=== PATIENT | male | born 1965 | race Caucasian/White ===

== ENCOUNTER 2017-04-10 14:58 | Emergency (ER) | payer OTHER ==
[~2017-04-10] VITALS: Ht 177.8 cm; Wt 113.4 kg
[2017-04-10] MEDS ORDERED: PERCOCET 5-3251 EACH PO (15:26)
[2017-04-10] MEDS ORDERED: CIPRO500 MG PO (15:26)
== END 2017-04-10 15:35 | disposition home or self-care (01) ==
LOC: ED 14:58
DX: N41.9 Inflammatory disease of prostate, unspecified (principal); I10 Essential (primary) hypertension
CPT/HCPCS: 99283

== ENCOUNTER 2018-05-31 15:14 | Emergency (ER) | payer BC, OTHER ==
[~2018-05-31] VITALS: Ht 177.8 cm; Wt 127.0 kg
[~2018-05-31 15:14] MED LIST: AMITRIPTYLINE150 MG PO; CIPRO500 MG PO; LISINOPRIL-HCT1 EACH PO; PERCOCET 5-3251 EACH PO
[2018-05-31] MEDS ORDERED: PRAVACHOL20 MG PO (15:28)
[2018-05-31] MEDS ORDERED: MECLIZINE HCL25 MG PO (15:57)
[2018-05-31] MEDS ORDERED: ZOFRAN4 MG SL (15:57)
[2018-05-31] MEDS ORDERED: ZYRTEC10 MG PO (15:57)
[2018-05-31] MEDS ORDERED: MEDROL4 MG PO (15:57)
--- NOTE | 2018-06-01 11:41 | EKG ---
[facility] [address] [facility] [place] [address] Signed Normal sinus rhythm Nonspecific ST abnormality Prolonged QT Abnormal ECG No previous ECGs available Confirmed by TERESA LOMAX MD ([id number]) on 06/01/2018 11:41:13 AM Electronically Signed By: TERESA LOMAX MD 06/01/18 1141 PATIENT NAME: BG LARIOS SHANE Electrocardiogram DATE OF : 67 PHYSICIAN: TERESA LOMAX MD REPORT #: [id number] REPORT IS CONFIDENTIAL AND NOT TO BE RELEASED WITHOUT AUTHORIZATION
== END 2018-05-31 16:21 | disposition home or self-care (01) ==
LOC: ED 15:14
DX: R42 Dizziness and giddiness (principal); I10 Essential (primary) hypertension; Z79.899 Other long term (current) drug therapy; Z88.6 Allergy status to analgesic agent
CPT/HCPCS: 80053; 83690; 85025; 93005; 93010; 96374; 96375; 99284-25; J1200; J2765; J7030

== ENCOUNTER 2018-07-05 19:35 | Emergency (ER) | payer BC, OTHER ==
[~2018-07-05] VITALS: Ht 177.8 cm; Wt 123.9 kg
--- OUTSIDE RECORDS SUMMARY | ~2018-07-05 | XMS | Clinical Summary ---
Demographics + + + | Home Phone | | + + + | Preferred Language | Unknown | + + + | Marital Status | Unknown | + + + | Scientologist Affiliation | Unknown | + + + | Race | Unknown | + + + | Ethnic Group | Unknown | + + + Author + + + | Author | [facility] | + + + | Organization | [facility] | + + + | Address | Unknown | + + + | Phone | Unavailable | + + + Care Team Providers + +------+ + | Care Virology Teacher Name | Role | Phone | + +------+ + PP | Unavailable | + +------+ + Allergies Not on File Current Medications Not on file Active Problems Not on file Social History + +-------+ +--------+------+ | Tobacco [...] on file | | + + + Plan of Treatment Not on file Results Not on filefrom Last 3 Months"
--- OUTSIDE RECORDS SUMMARY | ~2018-07-05 | XMS | Clinical Summary ---
Demographics + + + | Home Phone | | + + + | Preferred Language | Unknown | + + + | Marital Status | Unknown | + + + | Religion Affiliation | Unknown | + + + | Race | Unknown | + + + | Ethnic Group | Unknown | + + + Author + + + | Author | [facility] | + + + | Organization | [facility] | + + + | Address | Unknown | + + + | Phone | Unavailable | + + + Care Team Providers + +------+ + | Care Host/Hostess Name | Role | Phone | + [...]
[~2018-07-05 19:35] MED LIST changes: +MECLIZINE HCL25 MG PO; +MEDROL4 MG PO; +PRAVACHOL20 MG PO; +ZOFRAN4 MG SL; +ZYRTEC10 MG PO
[2018-07-05] MEDS ORDERED: SPIRONOLACTONE25 MG PO (19:44)
[2018-07-05] MEDS ORDERED: SUDAFED 12 HOU120 MG PO (19:56)
[2018-07-05] MEDS ORDERED: DOXYCYCLINE HY100 MG PO (19:56)
== END 2018-07-05 20:13 | disposition home or self-care (01) ==
LOC: ED 19:35
DX: J32.9 Chronic sinusitis, unspecified (principal); H69.83 Other specified disorders of Eustachian tube, bilateral; I10 Essential (primary) hypertension; Z87.442 Personal history of urinary calculi; Z88.6 Allergy status to analgesic agent; Z79.899 Other long term (current) drug therapy
CPT/HCPCS: 99283

== ENCOUNTER 2019-04-19 06:20 | Day surgery (SDC) | payer BC, OTHER ==
[~2019-04-19] VITALS: Ht 177.8 cm; Wt 122.5 kg
[~2019-04-19 06:20] MED LIST changes: +DOXYCYCLINE HY100 MG PO; +FENOFIBRATE145 MG PO; +SPIRONOLACTONE25 MG PO; +SUDAFED 12 HOU120 MG PO
--- NOTE | 2019-04-19 07:58 | NUR ---
04/19/19 0758 Laura Duarte 0755-PATIENT ARRIVED TO PACU ON 2L NC AWAKE DROWSY DENIES PAIN OR NAUSEA. RR EVEN. IVF INFUSING. ABDOMEN ROUND ENCOURAGED TO PASS GAS.
--- NOTE | 2019-04-19 10:37 | OR ---
[facility] [address] [place], [place] [address] Signed DATE OF OPERATION: 04/19/2019 SURGEON: Matthew Phoenix MD PREOPERATIVE DIAGNOSIS: Screening. POSTOPERATIVE DIAGNOSES: 1. Unremarkable colonoscopy. 2. Mildly indurated and enlarged prostate gland. PROCEDURE: Colonoscopy without biopsy. ESTIMATED BLOOD LOSS: None. INDICATIONS: Wally is a 53-year-old gentleman, asked to see me for a screening colonoscopy. He spoke of a colonoscopy over 10 years ago for reasons he is unclear. He said he was wide awake and it was miserable. In the office, I had given him a pamphlet on colonoscopy and we looked at that together in detail. He understands the nature of the test along with the risks including, but not limited to gas bloating, crampy abdominal pain, bleeding, perforation requiring surgery, and missed diagnosis. He also understands the need for IV conscious sedation. He also explained to me he has no lower GI complaints. There is no family history of colon cancer or polyps. He had expressed understanding and wished to proceed. PROCEDURE NOTE: Wally was taken into our endoscopy suite and placed in the left lateral decubitus position. He is obviously a bit apprehensive. He was given a total of 10 mg of Versed and 200 mcg of fentanyl to cover the case. Even then, he was awake as we came into the cecum. His prep was moderate. The scope was slowly withdrawn. We were able to talk to him as we withdrew the scope. Once in the rectum, the scope had been retroflexed and we saw no additional pathology above the anal canal. Of course, he was aware of that maneuver. We saw no evidence of any pathology then throughout his entire colon or rectum. After this, the gas was suctioned out and colonoscope removed. Overall, Wally tolerated the procedure well. RECOMMENDATIONS: Electronically Signed By: MATTHEW PHOENIX MD 04/19/19 [facility] PATIENT NAME: WALLY LARIOS OPERATIVE REPORT DATE OF : 67 REPORT #: [id number] PHYSICIAN: MATTHEW PHOENIX MD PCP: DEMI MATHEWS PA-C REPORT IS CONFIDENTIAL AND NOT TO BE RELEASED WITHOUT AUTHORIZATION [facility] [address] [place] [id number] Signed Wally needs a followup colonoscopy in 10 years for screening purposes. He might consider propofol infusion with monitored anesthesia care at that time. Matthew Phoenix MD ALB/MODL /[id number] cc: BARRETT Ansari MD Copies: DEMI MATHEWS PA-C, ANDREW L MD ~ Electronically Signed By: MATTHEW PHOENIX MD 04/19/19 1037 PATIENT NAME: WALLY LARIOS OPERATIVE REPORT DATE OF : 67 REPORT #: [id number] PHYSICIAN: MATTHEW PHOENIX MD PCP: DEMI MATHEWS PA-C REPORT IS CONFIDENTIAL AND NOT TO BE RELEASED WITHOUT AUTHORIZATION
--- NOTE | 2019-04-19 11:14 | NUR ---
PT ALERT, ORIENTED AND SEEMS RELAXED.SEEMS TO HAVE HANDLED PREP APPROPRIATELY. NO STRESS NOTED, HAS BEEN QUITE AWHILE SINCE LAST SCOPE. PT DECLINED PRAYER, SAID HE IS OK. THANKED ME FOR COMING IN, OR STAFF WAITING OUTSIDE RM
== END 2019-04-19 08:40 | disposition home or self-care (01) ==
LOC: DS 06:20 → OPS 06:20 → DS 06:45 → OPS 08:40
PROVIDERS: Colon & Rectal Surgery
PROC: 0DJD8ZZ Inspection of Lower Intestinal Tract, Via Natural or Artificial Opening Endoscopic (ICD-10-PCS; principal; 2019-04-19 06:45)
DX: Z12.11 Encounter for screening for malignant neoplasm of colon (principal); N40.0 Benign prostatic hyperplasia without lower urinary tract symptoms; N42.89 Other specified disorders of prostate; Z79.899 Other long term (current) drug therapy; Z88.6 Allergy status to analgesic agent
CPT/HCPCS: 99153; G0500; J2250; J3010; J7121

== ENCOUNTER 2019-10-03 14:15 | Emergency (ER) | payer OTHER ==
[~2019-10-03] VITALS: Ht 177.8 cm; Wt 122.6 kg
--- OUTSIDE RECORDS SUMMARY | ~2019-10-03 | XMS | Encounter Summary ---
Demographics + + + | Address | [address] | | | [place] [address] | + + + | Home Phone | | + + + | Preferred Language | Unknown | + + + | Marital Status | Single | + + + | Baptist Affiliation | Unknown | + + + | Race | Unknown | + + + | Ethnic Group | Unknown | + + + Author + + + | Author | [facility] | | | and [place] | + + + | Organization | [facility] | | | and [place] | + + + | Address | Unknown | + + + | Phone | Unavailable | + + + Support + + + + + | Name | Relationship | Address | Phone | + + + + + | Lucie Eric | ECON | [address] | | | | | [place], [place] | | | | | [address] | | + + + + + Care Team Providers + +------+ + | Care Burring Machine Operator Name | Role | Phone | + +------+ + | Luis F Alaniz PCP | | | MD | | | + +------+ + Reason for Visit Auth/Cert +--------+--------+ + + + + | Status | Reason | Specialty | Diagnoses / | Referred By | Referred To | | | | | Procedures | Contact | Contact | +--------+--------+ + + + + | | | | Diagnoses | | | | | | | Deviated | | | | | | | nasal septum | | | | | | | | | | | | | | Procedures | | | | | | | [place] REPAIR OF | | | | | | | NASAL | | | | | | | SEPTUM [place] | | | | | | | REMOV | | | | | | | ETHMOID | | | | | | | SINUS,INTRAN | | | | | | | JAN,TOTL | | | | | | | SEPTOPLASTY | | | | | | | BILATERAL | | | | | | | INTRANASAL | | | | | | | ETHMOIDECTOM | | | | | | | Y | | | +--------+--------+ + + + + Encounter Details +--------+ + + + + | Date | Type | Department | Care Team | Description | +--------+ + + + + | 09/03/ | Anesthesia | [facility] | Izaiah Kunz | | | 2019 | Event | [facility] | PMD [address] | | | | | [address] | [address] [place] | | | | | [place] | [phone] | | | | | [phone] | | | | | | | | | +--------+ + + + + Anesthesia Record + + + + + | Procedure Name | Responsible | Anesthesia Start | Anesthesia Stop Time | | | Anesthesiologist | Time | | + + + + + | SEPTOPLASTY | Izaiah Kunz, | 09/03/18 1009 | 09/03/18 1108 | | BILATERAL INTRANASAL | MD | | | | ETHMOIDECTOMY (N/A | | | | | ) | | | | + + + + + +----+---+ + + | Da | T | Event | Comment | | te | i | | | | | m | | | | | e | | | +----+---+ + + | 07 | 1 | An Checkout | Pre-use anesthesia machine/equipment checkout. | | /2 | 0 | | | | 6/ | 0 | | | | 20 | 5 | | | | 19 | | | | +----+---+ + + | | 1 | An Start | | | | 0 | Data | | | | 0 | | | | | 6 | | | +----+---+ + + | | 1 | | | | | 0 | | | | | 0 | | | | | 9 | | | +----+---+ + + | | 1 | An Start | Room ready, anesthesia equipment checked, essential drugs & | | | 0 | | equipment available. Patient Identity checked, anesthesia plan | | | 0 | | explained and consent obtained. Patient transported to OR, | | | 9 | | Monitors applied. Reassessment prior to anesthesia | | | | | induction/procedure. | +----+---+ + + | | 1 | an july now | | | | 0 | | | | | 1 | | | | | 0 | | | +----+---+ + + | | 1 | Antibiotic | | | | 0 | Given | | | | 1 | | | | | 1 | | | +----+---+ + + | | 1 | Preoxygenat | Oxygen administered, patient sedated, ventilating spontaneously. | | | 0 | ed | | | | 1 | | | | | 5 | | | +----+---+ + + | | 1 | An | | | | 0 | Induction | | | | 1 | | | | | 6 | | | +----+---+ + + | | 1 | An | Smooth IV induction, easy mask airway. LMA placed and well | | | 0 | Intubation | seated. Breathing Circuit attached to LMA. BSEB/ETCO2 | | | 1 | | (auscultation and capnography) and placement confirmed. | | | 7 | | | +----+---+ + + | | 1 | AN Bite | | | | 0 | Block | | | | 1 | | | | | 8 | | | +----+---+ + + | | 1 | Pre-Procedu | | | | 0 | ral Timeout | | | | 2 | Completed | | | | 3 | | | +----+---+ + + | | 1 | First | | | | 0 | Inc/Proc St | | | | 2 | | | | | 6 | | | +----+---+ + + | | 1 | an july now | | | | 1 | | | | | 0 | | | | | 3 | | | +----+---+ + + | | 1 | an stop | | | | 1 | data | | | | 0 | | | | | 3 | | | +----+---+ + + | | 1 | An Stop | Patient handed off to recovery nurse. | | | 0 | | | | | 8 | | | +----+---+ + + +------+ | Meds | +------+ + + + | Name | Total | + + + | fentaNYL | 100 mcg | + + + | propofol | 180 mg | + + + | propofol | 249.8 mg | + + + | dexamethasone | 8 mg | + + + | ondansetron | 4 mg | + + + | ceFAZolin | 3 g | + + + | morphine | 5 mg | + + + | lactated ringers (LR) infusion | 700 mL | + + + + + | Name | + + | N2O Flow Rate (L/Min) | + + | O2 Flow Rate (L/Min) | + + | Insp O2 | + + | Exp SEV | + + | Air Flow Rate (L/Min) | + + + + | No blood administrations on file. | + + +--------+ + + + | Type | Details | Placement | Removal | +--------+ + + + | Wound | 09/03/18; 1101; Incision; | 09/03/18 1101 by | | | | Bilateral; nose | Kamron Smith RN | | +--------+ + + + | Periph | 09/03/18; 0950; Right; Forearm; | 09/03/18 0950 by | 09/03/18 1244 by | | eral | [id number] catheter system; | Evi Mathew RN | Buck Hector RN | | IV | 20 gauge; 09/03/18; 1244 | | | | Line - | | | | | | | | | | Double | | | | | Lumen | | | | +--------+ + + + | Airway | Placement Date: 09/03/18; | 09/03/18 1017 by | 09/03/18 1110 by | | | Placement Time: 1017 (created via | Izaiah P Skaarup, | Betsy Sanchez RN | | | procedure documentation); Mask | MD | | | | Ventilation: EZ; Attempts: 1; | | | | | Airway Type: laryngeal mask; | | | | | Size: 5; Trauma: none; Placement | | | | | Check: exhaled CO2 detection | | | | | device, bilateral chest rise, | | | | | breath sounds equal bilaterally; | | | | | Removal Date: 09/03/18; Removal | | | | | Time: 1110; Additional Comments: | | | | | Smooth IV induction. LMA placed | | | | | and well seated. Secured in | | | | | place. Breathing Circuit attached | | | | | to LMA. BSEB/ETCO2 | | | | | (auscultation and capnography) | | | | | and placement confirmed. | | | +--------+ + + + documented in this encounter Social History + +-------+ +--------+------+ | Tobacco Use | Types | Packs/Day | Years | Date | | | | | Used | | + +-------+ +--------+------+ | Never Smoker | | | | | + +-------+ +--------+------+ + + +---------+ + | Alcohol Use | Drinks/Week | oz/Week | Comments | + + +---------+ + | Not Currently | | | | + + +---------+ + + + + + | Alcohol Habits | Answer | Date Recorded | + + + + | How often do you have a drink containing | Never | 09/02/2018 | | alcohol? | | | + + + + | How many drinks containing alcohol do you | Not asked | 09/02/2018 | | have on a typical day when you are | | | | drinking? | | | + + + + | How often do you have six or more drinks on | Not asked | 09/02/2018 | | one occasion? | | | + + + + + + + | Sex Assigned at | Date Recorded | | | | + + + | Not on file | | + + + documented as of this encounter OR Notes Anesthesia Postprocedure Evaluation - Izaiah Kunz MD - 09/03/2018 12:20 PM PDTForm atting of this note might be different from the original. ANESTHESIA POSTANESTHESIA EVALUATION Wally Morris [facility] 53 y.o. male 1965 [id number] Procedure(s) SEPTOPLASTY BILATERAL INTRANASAL ETHMOIDECTOMY (N/A ) Cooperates? Yes Mental Status Performs simple tasks. Respiratory Satisfactory - Airway patent (self maintained). Cardiovascular Satisfactory - Blood pressure and heart rate acceptable Temperature Satisfactory Pain Satisfactory N/V Control Satisfactory Hydration Satisfactory - No signs of dehydration Vitals Value Taken Time Temp 36.3 C (97.3 F) 09/03/2018 11:07 Pulse 84 09/03/2018 12:20 Resp 16 09/03/2018 11:45 BP 163/110 09/03/2018 12:33 Arterial Line BP Arterial Line BP 2 SpO2 97 % 09/03/2018 12:20 Vitals shown include unvalidated device data. Electronically signed by Izaiah Kunz MD 09/03/2018 12:33 [facility] nesthesia Procedure Notes - Izaiah Kunz MD - 09/03/2018 10: 25 AM PDTAssociated Order(s): AirwayAnesthesia Airway Placement 09/03/2018 10:17 Preprocedure check: patient identified, oxygen, airway assessed, patient reassessment prior to induction, airway equipment checked and suction Rapid Sequence Induction: no Mask ventilation: easy Attempts: 1 Airway type: laryngeal mask Size: 5 Cuffed: cuffed Route, reference point: center of mouth Tube secured with: adhesive tape Trauma: none Tube placement verification: carbon dioxide detection, equal bilateral breath sounds and bi lateral chest rise Performing provider: Izaiah Kunz MD Comments: Smooth IV induction. LMA placed and well seated. Secured in place. Breathing Circuit attached to LMA. BSEB/ETCO2 (auscultation and capnography) and placement confirmed. Please see intraoperative grid for any additional medication documentation. nesthesia Prepro cedure Evaluation - Izaiah Kunz MD - 09/03/2018 9:46 AM PDT ANESTHESIA PREANESTHESIA EVALUATION Wally White 53 y.o. male 1965 [id number] Procedure(s): SEPTOPLASTY BILATERAL INTRANASAL ETHMOIDECTOMY (N/A ) Review of Systems / Med History Cardiovascular , Exercise tolerance >4 METS(+) hypertension, . Pulmonary (+) sleep apnea. (+) Sleep apnea history/interventions: at risk. Stop Bang Score: 6. Endocrine (+) obesity: morbid BMI 40+ Physical Exam Airway MP III, TM >3 FB, Mouth opening >2 FB. Neck: full ROM, extends >30 degrees. Jaw protru faustina normal. CV Rhythm regular. Anesthesia Plan ASA 3 Type: General. Induction: Intravenous. Potential problems: None anticipated, none anticipated. Monitors: Standard ASA monitors. Consent statement:Anesthetic plan, alternatives, risks and benefits discussed with patient. . Consenting person understands and agrees to proceed . Patient Active Problem List: Cervical spondylolysis H/O Ccervical vertebra laminectomy History of skin graft Depression Hypertension History of bilateral carpal tunnel release Pansinusitis Risk factors for obstructive sleep apnea - STOPBANG 6 Obesity, Class III, BMI 40-49.9 (morbid obesity) . Electronically Signed by: Izaiah Kunz MD ESig date/time: 09/03/2018 9:46 documented in thi s encounter Miscellaneous Notes Addendum Note - Izaiah Kunz MD - 11/03/2018 10:32 AM PDTFormatting of this note mi ght be different from the original. Addendum created 11/03/18 103 by Izaiah Kunz MD Intraprocedure Meds edited ddendum Note - Izaiah Kunz MD - 11/03/2018 10:32 AM PDT Addendum created 11/03/18 1032 by Izaiah Kunz MD Intraprocedure Meds edited nesthesia Post- op Handoff - Izaiah Kunz MD - 09/03/2018 11:12 AM PDT ANESTHESIA HANDOFF NOTE Wally Morris [facility] 53 y.o. male 1965 [id number] The following were completed during the transfer of care: 1. Identification of patient 2. Identification of responsible practitioner (primary service) 3. Discussion of pertinent medical history 4. Discussion of the surgical/procedure course (procedure, reason for surgery, procedure pe rformed) 5. Intraoperative anesthetic management and issues/concerns 6. Expectations/plans for the early post-procedure period 7. Opportunity for questions and acknowledgement of understanding of report from receiving team Procedure(s): SEPTOPLASTY BILATERAL INTRANASAL ETHMOIDECTOMY Patient Location: Phase I Handoff Protocol Used: post-procedure handoff checklist completed Condition: sedated Airway/O2: other (see comments) Multimodal analgesia: multimodal analgesia used between 6 hours prior to anesthesia start t o PACU discharge Comments: Supplemental Oxygen used as necessary to maintain Oxygen Saturation at or above 9 2% The significant anesthesia concerns and VS in Epic were reviewed with the receiving team. Izaiah Kunz MD 09/03/2018 11:12 [facility] documented in this encounter Plan of Treatment Not on filedocumented as of this encounter Procedures + +--------+ + + + | Procedure Name | Priori | Date/Time | Associated Diagnosis | Comments | | | ty | | | | + +--------+ + + + | ANE AIRWAY NOTE | Routin | 09/03/2018 | | Results for this | | | e | 10:25 AM | | procedure are in the | | | | PDT | | results section. | + +--------+ + + + documented in this encounter Results Airway (09/03/2018 10:25 AM PDT) + + + | Narrative | Performed At | + + + | Izaiah Kunz MD 09/03/2018 10:25 Anesthesia Airway | | | Placement 09/03/2018 10:17 Preprocedure check: patient identified, | | | oxygen, airway assessed, patient reassessment prior to induction, | | | airway equipment checked and suction Rapid Sequence Induction: no | | | Mask ventilation: easy Attempts: 1 Airway type: laryngeal mask | | | Size: 5 Cuffed: cuffed Route, reference point: center of mouth Tube | | | secured with: adhesive tape Trauma: none Tube placement | | | verification: carbon dioxide detection, equal bilateral breath | | | sounds and bilateral chest rise Performing provider: Izaiah Baig | | | MD Ze Comments: Smooth IV induction. LMA placed and well | | | seated. Secured in place. Breathing Circuit attached to LMA. | | | BSEB/ETCO2 (auscultation and capnography) and placement confirmed. | | | Please see intraoperative grid for any additional medication | | | documentation. | | + + + + + | Procedure Note | + + | Izaiah Kunz MD - 09/03/2018 10:25 AM PDT Anesthesia Airway | | Placement09/03/2018 10:17Preprocedure check: patient identified, oxygen, airway assessed, | | patient reassessment prior to induction, airway equipment checked and suctionRapid | | Sequence Induction: noMask ventilation: easyAttempts: 1Airway type: laryngeal maskSize: | | 5Cuffed: cuffedRoute, reference point: center of mouthTube secured with: adhesive | | tapeTrauma: noneTube placement verification: carbon dioxide detection, equal bilateral | | breath sounds and bilateral chest risePerforming provider: Izaiah Kunz, | | MDComments: Smooth IV induction.LMA placed and well seated. Secured in place.Breathing | | Circuit attached to LMA. BSEB/ETCO2 (auscultation and capnography) and placement | | confirmed.Please see intraoperative grid for any additional medication documentation. | |Route, reference point: center of mouth | |Tube secured with: adhesive tape | |Trauma: none | |Tube placement verification: carbon dioxide detection, equal bilateral breath sounds and bi lateral chest rise | |Performing provider: Izaiah Kunz MD | | | |Comments: Smooth IV induction. | |LMA placed and well seated. Secured in place. | |Breathing Circuit attached to LMA. | |BSEB/ETCO2 (auscultation and capnography) and placement confirmed. | | | | | |Please see intraoperative grid for any additional medication documentation. | + + documented in this encounter Visit Diagnoses Not on filedocumented in this encounter Administered Medications + +--------+ +------+------+------+ | Medication Order | MAR | Action | Dose | Rate | Site | | | Action | Date | | | | + +--------+ +------+------+------+ | ceFAZolin (ANCEF, KEFZOL) | Given | 09/04/19 | 3 g | | | | injection Intravenous, PRN, | | 19 10:11 | | | | | Starting 09/03/18 at 1011, | | AM PDT | | | | | Anesthesia Intra-op | | | | | | + +--------+ +------+------+------+ +---+---+ | | | +---+---+ + +-------+ +------+---+---+ | dexamethasone (PF) 10 mg/mL | Given | 09/04/19 | 8 mg | | | | injection Intravenous, PRN, | | 19 10:11 | | | | | Starting 09/03/18 at 1011, | | AM PDT | | | | | Anesthesia Intra-op | | | | | | + +-------+ +------+---+---+ +---+---+ | | | +---+---+ + +-------+ +--------+---+---+ | fentaNYL (PF) injection | Given | 09/04/19 | 50 mcg | | | | Intravenous, PRN, Starting Fri | | 10:16 | | | | | 09/03/18 at 1012, Anesthesia | | AM PDT | | | | | Intra-op | | | | | | + +-------+ +--------+---+---+ +-------+ +--------+---+---+ | Given | 09/04/19 | 50 mcg | | | | | 19 10:12 | | | | | | AM PDT | | | | +-------+ +--------+---+---+ +---+---+ | | | +---+---+ + +-------+ +------+---+---+ | morphine 10 mg/mL injection | Given | 09/04/19 | 1 mg | | | | Intravenous, PRN, Starting Fri | | 19 10:40 | | | | | 09/03/18 at 1018, Anesthesia | | AM PDT | | | | | Intra-op | | | | | | + +-------+ +------+---+---+ +-------+ +------+---+---+ | Given | 09/04/19 | 1 mg | | | | | 19 10:28 | | | | | | AM PDT | | | | +-------+ +------+---+---+ | Given | 09/04/19 | 3 mg | | | | | 19 10:18 | | | | | | AM PDT | | | | +-------+ +------+---+---+ +---+---+ | | | +---+---+ + +-------+ +------+---+---+ | ondansetron (ZOFRAN) injection | Given | 09/04/19 | 4 mg | | | | PRN, Starting Thu09/03/18 at | | 19 10:11 | | | | | 1011, Anesthesia Intra-op | | AM PDT | | | | + +-------+ +------+---+---+ +---+---+ | | | +---+---+ + +-------+ +--------+---+---+ | propofol (DIPRIVAN) injection | Given | 09/04/19 | 180 mg | | | | Intravenous, PRN, Starting Thu | | 19 10:16 | | | | | 09/03/18 at 1016, Anesthesia | | AM PDT | | | | | Intra-op | | | | | | + +-------+ +--------+---+---+ +---+---+ | | | +---+---+ + +---------+ + +-------+---+ | propofol (DIPRIVAN) injection | New Bag | 09/04/19 | 50 | 37.5 | | | Intravenous, CONTINUOUS PRN, | | 19 10:20 | mcg/kg/m | mL/hr | | | Starting 09/03/18 at 1020, | | AM PDT | in | | | | Anesthesia Intra-op | | | | | | + +---------+ + +-------+---+ +---+---+ | | | +---+---+ documented in this encounter"
--- OUTSIDE RECORDS SUMMARY | ~2019-10-03 | XMS | Encounter Summary ---
Demographics + + + | Address | [address] | | | [place] [address] | + + + | Home Phone | | + + + | Preferred Language | Unknown | + + + | Marital Status | Single | + + + | Sikhism Affiliation | Unknown | + + + | Race | Unknown | + + + | Ethnic Group | Unknown | + + + Author + + + | Author | [facility] | | | and [place] | + + + | Organization | [facility] | | | and [place] | + + + | Address | Unknown | + + + | Phone | Unavailable | + + + Support + + + + + | Name | Relationship | Address | Phone | + + + + + | Lucie Eric | ECON | [address] | | | | | [place], [place] | | | | | [address] | | + + + + + Care Team Providers + +------+ + | Care Co Founder And Cto Name | Role | Phone | + +------+ + | Luis F Alaniz PCP | | | MD | | | + +------+ + Encounter Details +--------+ + + + + | Date | Type | Department | Care Team | Description | +--------+ + + + + | 09/03/ | Anesthesia | [facility] | Izaiah Kunz | | | 2019 | Event | [facility] | PMD [address] | | | | | [address] | [address] [place] | | | | | [place] | [phone] | | | | | [address] | [phone] | | | | | | | | +--------+ + + + + Anesthesia Record + + + + + | Procedure Name | Responsible | Anesthesia Start | Anesthesia Stop Time | | | Anesthesiologist | Time | | + + + + + | SEPTOPLASTY | | | | | BILATERAL INTRANASAL | | | | | ETHMOIDECTOMY | | | | | (Bilateral ) | | | | + + + + + + + | No events on file. | + + +------+ | Meds | +------+ + + + No medications | on file. | + + + + + | No agents on file. | + + + + | No blood administrations on file. | + + +-------+ + +---------+ | Type | Details | Placement | Removal | +-------+ + +---------+ | Wound | 09/03/18; 1100; Incision; | 09/03/181100 by | | | | Bilateral; nose | Kamron Smith RN | | +-------+ + +---------+ documented in this encounter Social History + [...] as of this encounter OR Notes Anesthesia Preprocedure Evaluation - Izaiah Kunz MD - 09/03/2018 7:47 AM PDTForma tting of this note might be different from the original. ANESTHESIA PREANESTHESIA EVALUATION Wally White 53 y.o. male 1965 [id number] Procedure(s): SEPTOPLASTY BILATERAL INTRANASAL ETHMOIDECTOMY (Bilateral ) Review of Systems / Med History Cardiovascular (+) hypertension, . Pulmonary (+) sleep apnea. (+) Sleep apnea history/interventions: at risk. Stop Bang Score: 7. Gastrointestinal/Hepatic (+) hypercholesterolemia. Endocrine (+) obesity: morbid BMI 40+ Psychology (+) substance abuse. Physical Exam Airway MP III, TM >3 [...] to proceed . Patient Active Problem List: Hypertension Hypercholesteremia Marijuana use Chronic pansinusitis JACKI Inhibitors - Daily Use Risk factors for obstructive sleep apnea - STOPBANG 7 Obesity, Class III, BMI 40-49.9 (morbid obesity) . Electronically Signed by: Izaiah Kunz MD ESig date/time: 09/03/2018 7:47 documented in thi s encounter Plan of Treatment Not on filedocumented as of this encounter Visit Diagnoses Not on filedocumented in this encounter"
--- OUTSIDE RECORDS SUMMARY | ~2019-10-03 | XMS | Encounter Summary ---
Demographics + + + | Address | [address] | | | [place] [address] | + + + | Home Phone | | + + + | Preferred Language | Unknown | + + + | Marital Status | Single | + + + | Christian Affiliation | Unknown | + + + | Race | Unknown | + + + | Ethnic Group | Unknown | + + + Author + + + | Author | [facility] | | | and [place] | + + + | Organization | [facility] | | | and [place] | + + + | Address | Unknown | + + + | Phone | Unavailable | + + + Support + + + + + | Name | Relationship | Address | Phone | + + + + + | Lucie Eric | ECON | [address] | | | | | [place], [place] | | | | | [address] | | + + + + + Care Team Providers + +------+ + | Care Assistant Child Care Teacher Name | Role | Phone | + +------+ + PCP | Unavailable | + +------+ + Encounter Details +--------+ + + + + | Date | Type | Department | Care Team | Description | +--------+ + + + + | 10/09/ | Hospital | [facility] | | | | 2009 | Encounter | MED CTR XRAY [address] | | | | | | [address] | | | | | | [place] [address] | | | | | | [phone] | | | +--------+ + + + + Social History + +-------+ +--------+------+ | Tobacco Use | Types | Packs/Day | Years | Date | | | | | Used | | + +-------+ +--------+------+ | Never Assessed | | | | | + +-------+ +--------+------+ + + + | Sex Assigned at | Date Recorded | | | | + + + | Not on file | | + + + documented as of this encounter Plan of Treatment Not on filedocumented as of this encounter Visit Diagnoses Not on filedocumented in this encounter"
--- OUTSIDE RECORDS SUMMARY | ~2019-10-03 | XMS | Clinical Summary ---
Demographics + + + | Address | [address] | | | [place] [address] | + + + | Home Phone | | + + + | Preferred Language | Unknown | + + + | Marital Status | Single | + + + | Mormonism Affiliation | Unknown | + + + | Race | Unknown | + + + | Ethnic Group | Unknown | + + + Author + + + | Author | [facility] | | | and [place] | + + + | Organization | [facility] | | | and [place] | + + + | Address | Unknown | + + + | Phone | Unavailable | + + + Support + + + + + | Name | Relationship | Address | Phone | + + + + + | Lucie Eric | ECON | [address] | | | | | [place], [place] | | | | | [address] | | + + + + + Care Team Providers + +------+ + | Care Supervisor [place] Name | Role | Phone | + +------+ + | Luis F Alaniz PCP | | | MD | | | + +------+ + Allergies + + + + + + | Active Allergy | Reactions | Severity | Noted | Comments | | | | | Date | | + + + + + + | Ketorolac | Hives | Medium | 09/03/19 | | | | | | 19 | | + + + + + + | Ketorolac | Swelling | | 09/04/19 | | | | | | 19 | | + + + + + + Medications + + + +---------+------+------+-------+ | Medication | Sig | Dispensed | Refills | Star | End | Statu | | | | | | t | Date | s | | | | | | Date | | | + + + +---------+------+------+-------+ | pravastatin | Take 20 mg by mouth | | 0 | | | Activ | | (PRAVACHOL) 20 mg | nightly. | | | | | e | | tablet | | | | | | | + + + +---------+------+------+-------+ | levoFLOXacin | Take 500 mg by mouth | | 0 | | | Activ | | (LEVAQUIN) 500 mg | Daily. | | | | | e | | tablet | | | | | | | + + + +---------+------+------+-------+ | spironolactone | Take 25 mg by mouth | | 0 | | | Activ | | (ALDACTONE) 25 mg | Daily. | | | | | e | | tablet | | | | | | | + + + +---------+------+------+-------+ | lisinopril | Take 20 mg by mouth | | 0 | | | Activ | | (PRINIVIL, ZESTRIL) | Daily. | | | | | e | | 20 mg tablet | | | | | | | + + + +---------+------+------+-------+ | amitriptyline | Take 150 mg by mouth | | 0 | | | Activ | | (ELAVIL) 150 MG | nightly. | | | | | e | | tablet | | | | | | | + + + +---------+------+------+-------+ | | Take 1-2 tablets by | 30 | 0 | 07/2 | | Activ | | HYDROcodone-acetamin | mouth every 4 hours | tablet | | 6/20 | | e | | ophen (NORCO) 5-325 | as needed for Pain. | | | 19 | | | | mg per tablet | | | | | | | + + + +---------+------+------+-------+ | cephalexin | Take 1 capsule by | 20 | 0 | 07/2 | | Activ | | (KEFLEX) 500 mg | mouth 4 times daily. | capsule | | 6/20 | | e | | capsule | | | | 19 | | | + + + +---------+------+------+-------+ Active Problems + + + | Problem | Noted Date | + + + | Hypertension | 09/03/2018 | + + + | Hypercholesteremia | 09/03/2018 | + + + | Marijuana use | 09/03/2018 | + + + | Chronic pansinusitis | 09/03/2018 | + + + | JACKI Inhibitors - Daily Use | 09/03/2018 | + + + | Cervical spondylolysis | 09/03/2018 | + + + + + | Overview: History of cervical compression injury, cervical | | spondylotic disease, most severe at the C4-5 level, which was the | | area of previous concern. Laminectomy at C4-5 in 1996 for | | radiculopathy | + + + + + | Depression | 09/03/2018 | + + + | Risk factors for obstructive sleep apnea - STOPBANG 6 | 09/03/2018 | + + + + + | Overview: SEPIDEH 6 | + + + + + | H/O Ccervical vertebra laminectomy | 09/03/1996 | + + + | Risk factors for obstructive sleep apnea - STOPBANG 7 | | + + + + + | Overview: STOP BANG 7 | + + + +---+ | Obesity, Class III, BMI 40-49.9 (morbid obesity) | | + +---+ | History of skin graft | | + +---+ + + | Overview: Grafts to Hand after injury | + + + +---+ | Hypertension | | + +---+ | History of bilateral carpal tunnel release | | + +---+ + + | Overview: L/R CTS release 2009 | + + + +---+ | Pansinusitis | | + +---+ | Obesity, Class III, BMI 40-49.9 (morbid obesity) | | + +---+ Social History + +-------+ +--------+------+ | Tobacco [...] on file | | + + + Last Filed Vital Signs + + + + + | Vital Sign | Reading | Time Taken | Comments | + + + + + | Blood Pressure | 163/110 | 09/03/2018 12:35 PM | | | | | PDT | | + + + + + | Pulse | 84 | 09/03/2018 12:20 PM | | | | | PDT | | + + + + + | Temperature | 36.3 C (97.3 F) | 09/03/2018 11:07 AM | | | | | PDT | | + + + + + | Respiratory Rate | 16 | 09/03/2018 11:45 AM | | | | | PDT | | + + + + + | Oxygen Saturation | 97% | 09/03/2018 12:20 PM | | | | | PDT | | + + + + + | Inhaled Oxygen | - | - | | | Concentration | | | | + + + + + | Weight | 124.9 kg (275 lb 5.7 | 09/03/2018 9:28 AM | | | | oz) | PDT | | + + + + + | Height | 177.8 cm (5' 10") | 09/03/2018 9:28 AM | | | | | PDT | | + + + + + | Body Mass Index | 39.51 | 09/03/2018 9:28 AM | | | | | PDT | | + + + + + Plan of Treatment + + + + + | Health Maintenance | Due Date | Last | Comments | | | | Done | | + + + + + | Hepatitis C | | | | | Screening | 7 | | | + + + + + | Med Mgmt: Cr | | | | | | 7 | | | + + + + + | Med Mgmt: K | | | | | | 7 | | | + + + + + | Med Mgmt: Na | | | | | | 7 | | | + + + + + | Medication | | | | | Management | 7 | | | + + + + + | Vaccine: | | | | | Pneumococcal 19-64 | 3 | | | | (1 of 3 - PCV13) | | | | + + + + + | Colorectal Cancer | | | | | Screening | 7 | | | | (Colonoscopy) | | | | + + + + + | Vaccine: Zoster (1 | | | | | of 2) | 7 | | | + + + + + | Vaccine: Influenza | | 11/24/19 | | | (#1) | 0 | 16, | | | | | 12/01/19 | | | | | 13, | | | | | 02/25/19 | | | | | 13, | | | | | Addition | | | | | al | | | | | history | | | | | exists | | + + + + + | Vaccine: | | 11/24/19 | | | Dtap/Tdap/Td (7 - | 6 | 16, | | | Td) | | 03/23/18 | | | | | 97, | | | | | 09/14/18 | | | | | 73, | | | | | Addition | | | | | al | | | | | history | | | | | exists | | + + + + + Results Not on filefrom Last 3 Months Insurance + +--------+ +--------+ +---------+--------+ | Payer | Benefi | Subscriber | Effect | Phone | Address | Type | | | t Plan | ID | trent | | | | | | / | | Dates | | | | | | Group | | | | | | + +--------+ +--------+ +---------+--------+ | BCBS | BCBS | [id number] | 02/09/19 | | | PPO | | | OOS | 2 | 19-Pre | | | | | | PPO | | sent | | | | + +--------+ +--------+ +---------+--------+ | BCBS | BCBS | [id number] | 02/09/19 | | | PPO | | | OOS | 2 | 19-Pre | | | | | | PPO | | sent | | | | + +--------+ +--------+ +---------+--------+ | [employer] | MODA | [id number] | | [phone] | | Medica | | MEDICAID HMO | HEALTH | | 019-Pr | 1 | | id | | | MDCD | | esent | | | | | | [place] | | | | | | + +--------+ +--------+ +---------+--------+ + +--------+ +--------+ + + | Guarantor Name | Accoun | Relation to | Date | Phone | Billing Address | | | t Type | Patient | of | | | | | | | | | | + +--------+ +--------+ + + | Wally White | Person | Self [birth year] | [address] | | | al/Fam | | 1965 | [phone] | [place] | | | [place] | | | [address] (Home) | [phone] | + +--------+ +--------+ + + | Wally White | Person | Self | [birth year] | [address] | | | al/Fam | | 1965 | [phone] | [address]pt [place] | | | [place] | | | [address] (Home) | [phone] | + +--------+ +--------+ + + Advance Directives + + + + + | Type | Date Recorded | Patient | Explanation | | | | Retail Support Manager | | + + + + + | Power of | | | | | Director Of Pharmacy | | | | + + + + + | Power of | | | | | Director Of Pharmacy | | | | + + + + + | Advance | | | | | Directive | | | | + + + + + | Advance | 09/03/2018 9:52 | | | | Directive | AM | | | + + + + +
--- OUTSIDE RECORDS SUMMARY | ~2019-10-03 | XMS | Encounter Summary ---
Demographics + + + | Address | [address] | | | [place] [address] | + + + | Home Phone | | + + + | Preferred Language | Unknown | + + + | Marital Status | Single | + + + | Islam Affiliation | Unknown | + + + | Race | Unknown | + + + | Ethnic Group | Unknown | + + + Author + + + | Author | [facility] | | | and [place] | + + + | Organization | [facility] | | | and [place] | + + + | Address | Unknown | + + + | Phone | Unavailable | + + + Support + + + + + | Name | Relationship | Address | Phone | + + + + + | Lucie Eric | ECON | [address] | | | | | [place], [place] | | | | | [address] | | + + + + + Care Team Providers + +------+ + | Care Clinical Director Name | Role | Phone | + +------+ + PCP | Unavailable | + +------+ + Encounter Details +--------+ + + + + | Date | Type | Department | Care Team | Description | +--------+ + + + + | 10/31/ | Hospital | [facility] | | | | 2009 | Encounter | MED [facility] | | | | | | [address] | | | | | | [place] | | | | | | [address] | | | | | | [phone] | | | +--------+ + + + [...]
--- OUTSIDE RECORDS SUMMARY | ~2019-10-03 | XMS | Encounter Summary ---
Demographics + + + | Address | [address] | | | [place] [address] | + + + | Home Phone | | + + + | Preferred Language | Unknown | + + + | Marital Status | Single | + + + | Taoist Affiliation | Unknown | + + + | Race | Unknown | + + + | Ethnic Group | Unknown | + + + Author + + + | Author | [facility] | | | and [place] | + + + | Organization | [facility] | | | and [place] | + + + | Address | Unknown | + + + | Phone | Unavailable | + + + Support + + + + + | Name | Relationship | Address | Phone | + + + + + | Lucie Eric | ECON | [address] | | | | | [place], [place] | | | | | [address] | | + + + + + Care Team Providers + +------+ + | Care Bulldozer/Loader/Compactor/Scraper Name | Role | Phone | + +------+ + | Phan Alaniz PCP | | | MD | [...] | | | | | | | [place] REPAIR OF | | | | | | | NASAL | | | | | | | SEPTUM [place] | | | | | | | [...] + + + + | 09/03/ | Hospital | [facility] | Jose C Woods, | | | 2019 | Encounter | [facility] | [address] | | | | | [address] | [address] [place], | | | | | [place], [place] | [place] [address] | | | | | [address] | [phone] | | | | | [phone] | | | +--------+ + + + [...] + + documented as of this encounter Last Filed Vital Signs + + + [...] | | + + + + + documented in this encounter Medications at Time of Discharge + + + +---------+ + + | Medication | Sig | Dispensed | Refills | Start | End Date | | | | | | Date | | + + + +---------+ + + | amitriptyline | Take 150 mg by mouth | | 0 | | | | (ELAVIL) 150 MG | nightly. | | | | | | tablet | | | | | | + + + +---------+ + + | cephalexin | Take 1 capsule by | 20 | 0 | 09/04/19 | | | (KEFLEX) 500 mg | mouth 4 times daily. | capsule | | 19 | | | capsule | | | | | | + + + +---------+ + + | | Take 1-2 tablets by | 30 | 0 | 09/04/19 | | | HYDROcodone-acetamin | mouth every 4 hours | tablet | | 19 | | | ophen (NORCO) 5-325 | as needed for Pain. | | | | | | mg per tablet | | | | | | + + + +---------+ + + | levoFLOXacin | Take 500 mg by mouth | | 0 | | | | (LEVAQUIN) 500 mg | Daily. | | | | | | tablet | | | | | | + + + +---------+ + + | lisinopril | Take 20 mg by mouth | | 0 | | | | (PRINIVIL, ZESTRIL) | Daily. | | | | | | 20 mg tablet | | | | | | + + + +---------+ + + | pravastatin | Take 20 mg by mouth | | 0 | | | | (PRAVACHOL) 20 mg | nightly. | | | | | | tablet | | | | | | + + + +---------+ + + | spironolactone | Take 25 mg by mouth | | 0 | | | | (ALDACTONE) 25 mg | Daily. | | | | | | tablet | | | | | | + + + +---------+ + + documented as of this encounter Miscellaneous Notes Op Note - Jose C Woods MD - 09/03/2018 11:12 [address] [address] OPERATIVE REPORT JOSE C WOODS MD Patient: BG LARIOS Admitting: JOSE C WOODS MR #: [id number] LOC: PT TYPE: Adm Date: 09/03/2018 : 1965 PREOPERATIVE DIAGNOSIS: Chronic pansinusitis with septal deformity. POSTOPERATIVE DIAGNOSIS: Chronic pansinusitis with septal deformity. NAME OF PROCEDURE: Septoplasty, bilateral internasal ethmoidectomy. NAME OF SURGEON: Jose C Woods MD ANESTHESIA: General LMA, Izaiah Kunz MD PREOPERATIVE HISTORY: Bg is a 53-year-old man with chronic sinus problems, multiple ant ibiotics, steroids, nasal sprays, continued problems. CAT scan showed opacification of the ethmoids. Exam has shown a septal deformity. He is taken to the operating room for the abo ve-mentioned procedures. OPERATIVE PROCEDURE AND FINDINGS: After informed consent, the patient was taken to the ope rating room, placed in supine position, where general LMA anesthesia was induced. The patie nt and procedure were verified. The patient received preoperative intranasal oxymetazoline and intravenous Ancef. The preoperative CT was viewed throughout. Headlight speculum exam of the nasal cavity showed a significant septal deformity with a large spur inferiorly impi nging on the lateral nasal wall. One percent lidocaine with epinephrine was injected in the mucosa overlying the spur. Mucosa was elevated off the spur and this deviated septal bone and cartilage was excised with Gabriele. The airway was improved. Minimal spur on the rig ht side was also removed. Left intranasal ethmoidectomy was then performed. Headlight speculum exam, the middle turb inate was medialized. Ethmoid bulla taken down with Gabriele. Anterior ethmoid air cells opened. There was hypertrophic mucosa, quite a bit of vascularity, lots of bleeding. Poste rior ethmoids were opened with the Gabriele per CT. Middle meatal antrostomy was made with a curved ring curet and the inferior portion of the maxillary sinus was curetted with mini mal mucosal debris obtained. Bleeding was controlled. All obvious pathology removed. Pack ing was then placed. Chow pack coated with Neosporin in the middle meatus and a trimmed Me rocel pack in the nasal cavity. Same procedure, essentially same findings on the right. Th ere was a large polyp in the middle meatus on the right side, but the same procedure essenti ally was performed. Packing placed. The strings of the packing were tied anteriorly over a pad. The pharynx was suctioned clear of blood and secretions. The patient was then awake verna, extubated and transported to recovery room in good condition. COMPLICATIONS: None. BLOOD LOSS: About 200 mL. PACKING: Two pieces of Merocel in each nostril. SPECIMEN TO PATHOLOGY: Left and right sinus contents separately. DRAINS: None. JOSE C WOODS MD Dictated by JOSE C WOODS MD 09/03/2018 11:12:26 Transcribed on 09/03/2018 11:52:59 by job# [id number] Confirmation #: [id number] cc: PHAN ALANIZ MD rief Op Note - Jose C Woods MD - 09/03/2018 11:05 AM PDTFormatting of this note mi ght be different from the original. BRIEF OPERATIVE NOTE [facility] Pt. Name/Age/: Bg Larios 53 y.o. 1965 Med. Record Number: [id number] Date of admission: 09/03/2018 Date of Operation/Procedure: 09/03/2018 Preoperative Diagnosis: * No pre-op diagnosis entered * Postoperative Diagnosis: * Deviated nasal septum [J34.2] Surgeon: Jose C Woods MD Senior Project Manager: None Anesthesia Provider(s): Anesthesiologist: Izaiah Kunz MD Anesthesia Type: General Procedure(s): SEPTOPLASTY BILATERAL INTRANASAL ETHMOIDECTOMY Operative Findings: Wound Closure: Primary closure Evidence of infection: No infection noted. Estimated Blood Loss: Minimal, less than 100mL IV Fluids: refer to anesthesia record Blood Transfusion: None Drains: none Specimen (s): ID Type Source Tests Collected by Time Destination A : left sinus contents Tissue Sinus, Ethmoid, Left SPECIMEN TO PATHOLOGY Jose C Woods MD 09/03/2018 1031 Pathology B : right sinus contents Tissue Sinus, Ethmoid, Right SPECIMEN TO PATHOLOGY Jose C Woods MD 09/03/2018 1032 Pathology Implants: * No implants in log * Counts: Instrument, sponge, and needle counts were correct prior to closure and at the con clusion of the case. Complications: None Disposition: The patient was taken to PACU Immediate Post-Operative Condition: Stable Electronically signed by: Jose C Woods MD, 09/03/2018, 11:05 nterval H&P Note (unlinked) - Jose C Woods MD - 09/03/2018 10:05 [facility] AND PHYSICAL UPDATE Pt. Name/Age/: Bg Larios 53 y.o. 1965 Date of admission: 09/03/2018 The current H&P was reviewed. The patient was reexamined. Re-evaluation of the patient co nfirms the necessity for the scheduled procedure. No change has occurred in the patient s condition since the H&P was completed less than 30 days ago. Electronically signed by: Jose C Woods, 09/03/2018 10:05 [facility] SURGICAL INTERIM HISTORY AND PHYSICAL UPDATE Pt. Name/Age/: Bg Larios 53 y.o. 1965 Date of admission: 09/03/2018 The current H&P was reviewed. The patient was reexamined. Re-evaluation of the patient co nfirms the necessity for the scheduled procedure. No change has occurred in the patient s condition since the H&P was completed less than 30 days ago. Electronically signed by: Jose C Woods, 09/03/2018 10:05 [facility] documented in this e ncounter Plan of Treatment Not on filedocumented as of this encounter Procedures + +--------+ + + + | Procedure Name | Priori | Date/Time | Associated Diagnosis | Comments | | | ty | | | | + +--------+ + + + | SEPTOPLASTY W/ OR | | 09/03/2018 | Deviated nasal | | | W/O TURBINATES | | 10:10 AM | septum | | | | | PDT | | | + +--------+ + + + | SURGICAL PATHOLOGY | Routin | 09/03/2018 | | Results for this | | EXAM | e | 12:00 AM | | procedure are in the | | | | PDT | | results section. | + +--------+ + + + documented in this encounter Results Surgical Pathology Exam (09/03/2018 12:00 AM PDT) + + | Specimen | + + | | + + + + + | Narrative | Performed At | + + + | SPECIMEN(S): A LEFT SINUS CONTENTS SPECIMEN(S): B RIGHT SINUS | [facility] | | CONTENTS SPECIMEN SOURCE: A. LEFT SINUS CONTENTS B. RIGHT SINUS | [facility] | | CONTENTS CLINICAL HISTORY: J34.2 (deviated nasal septum) | | | FINAL PATHOLOGIC DIAGNOSIS: A. Sinus contents, left: - Fragments | | | of unremarkable bone, respiratory epithelium, submucosal glands and | | | blood. - Edema with eosinophils are noted, consistent with features | | | seen chronic sinusitis. B. Sinus contents, right: - Fragments | | | of unremarkable bone, respiratory epithelium, submucosal glands and | | | blood. - Edema with eosinophils are noted, consistent with features | | | seen chronic sinusitis. - Edematous polypoid tissue fragments are | | | present, consistent with features seen in benign nasal polyps. | | | TWK:[facility]:C2NR MICROSCOPIC EXAMINATION: Histologic sections of all | | | submitted blocks are examined by light microscopy. These findings, | | | together with the gross examination, support the pathologic diagnosis. | | | GROSS DESCRIPTION: Two specimens are received in two containers, | | | labeled "SW." A. The specimen, labeled "SW, left sinus | | | contents," is received in formalin and consists of four irregular | | | shaped pink-hernández, soft tissue fragments that aggregate measure 2.2 x | | | 1.4 x 0.4 cm. Also present within the soft tissue are fragments of | | | bone tissue. Specimen is entirely submitted in cassette (A1). | | | Cassette is left for decalcification in Decal Stat prior processing. | | | B. The specimen, labeled "SW, right sinus contents," is | | | received in formalin and consists of several pieces of pink-hernández, soft | | | tissue fragments together with the bone tissue fragment. The | | | aggregate measure 3.0 x 1.6 x 0.4 cm. Approximately 90% of the | | | specimen is submitted in single cassette (B1). Cassette is left for | | | decalcification in Decal Stat prior processing. JS (under the direct | | | supervision of a pathologist) The Gross Description was | | | prepared using a voice recognition system. The report was reviewed | | | for accuracy; however, sound-alike word errors, addition and/or | | | deletions may occur. If there is any question about this report, | | | please contact Client Services. PERFORMING LABORATORY: The | | | technical component was performed by [facility], [address] [place] [address] | | | [place] [address] (Paper Latcher: Saivta Haley MD; CLIA# | | | [id number]). Unless otherwise specified, the technical component | | | [place] [address]. The | | | professional interpretation [facility], | | | [facility], [address] [place] [address]. | | | Diagnostician: Moy Steniberg MD Pathologist Electronically Signed | | | 09/06/2018 | | + + + + +---------+ + + | Performing | Address | City/State/[facility] | Phone Number | | Organization | | | | + +---------+ + + | [facility] | | | | | [facility] | | | | + +---------+ + + documented in this encounter Visit Diagnoses + + | Diagnosis | + + | Pansinusitis - Primary Other chronic sinusitis | + + documented in this encounter Administered Medications + +--------+ +--------+------+------+ | Medication Order | MAR | Action | Dose | Rate | Site | | | Action | Date | | | | + +--------+ +--------+------+------+ | acetaminophen (TYLENOL) tablet | Given | 09/04/19 | 975 mg | | | | 975 mg 975 mg, Oral, ONCE, Thu | | 19 9:48 | | | | | 09/03/18 at 1000, For 1 dose, | | AM PDT | | | | | Pre-op | | | | | | + +--------+ +--------+------+------+ + +---+ | | | + +---+ | albuterol-ipratropium 2.5-0.5 | | | mg/3 mL nebulizer solution 3 mL | | | 3 mL, Nebulization, ONCE PRN, | | | Wheezing, Shortness of Breath, | | | Starting Thu09/03/18 at 1101, For | | | 1 dose, Recovery/Phase I | | + +---+ | | | + +---+ | dexamethasone (DECADRON) 4 | | | mg/mL injection 4 mg 4 mg, | | | Intravenous, ONCE PRN, Nausea, | | | Starting Thu09/03/18 at 1101, For | | | 1 dose, Only administer to | | | patients without a diagnosis of | | | diabetes., Recovery/Phase I | | + +---+ | | | + +---+ | dextrose 50% injection 12.5-25 | | | g 12.5-25 g, Intravenous, EVERY | | | 15 MIN PRN, Low Blood Sugar, Give | | | 12.5g (25 mL) IV if blood | | | glucose 50-69 mg/dL. Give 25g | | | (50 mL) IV if blood glucose < 50, | | | Starting Thu09/03/18 at 0933, | | | Repeat in 15 min if blood glucose | | | remains < 70 mg/dL. Repeat | | | blood glucose in 30 min once | | | blood glucose > 70., Pre-op | | + +---+ | | | + +---+ | ePHEDrine (AKOVAZ) 50 mg/mL | | | injection 5-10 mg 5-10 mg, | | | Intravenous, EVERY 5 MIN PRN, if | | | SBP <90 or HR under 40, Starting | | | Thu09/03/18 at 1101, Hold if HR | | | > 100. Hold for SBP >140. | | | Maximum total dose 20mg., | | | Recovery/Phase I | | + +---+ | | | + +---+ | fentaNYL (PF) injection 25-50 | | | mcg 25-50 mcg, Intravenous, | | | EVERY 5 MIN PRN, Pain, Initial | | | postop urgent pain or escalating | | | pain, Starting Thu09/03/18 at | | | 1101, For 4 doses, (2 doses | | | maximum for opioid naive, 4 doses | | | maximum for opioid tolerant) | | | First dose must be lowest dose. | | | Use Pasero Sedation Scale. | | | [Opioid tolerant = One week or | | | longer, zgisuw-kgm-tyymj use of | | | at least the following DAILY | | | dose: 60mg oral morphine, 60mg | | | oral hydrocodone, 30mg oral | | | oxycodone, 8mg oral | | | hydromorphone, fentanyl patch | | | 25mcg/hr, or equivalent dose of | | | another opioid], Recovery/Phase I | | + +---+ | | | + +---+ + +-------+ +--------+---+---+ | gabapentin (NEURONTIN) capsule | Given | 09/04/19 | 300 mg | | | | 300 mg 300 mg, Oral, ONCE, Thu | | 19 9:49 | | | | | 09/03/18 at 1000, For 1 dose, | | AM PDT | | | | | Pre-op | | | | | | + +-------+ +--------+---+---+ +---+---+ | | | +---+---+ + +-------+ +--------+---+---+ | HYDROmorphone (DILAUDID) | Given | 09/04/19 | 0.5 mg | | | | injection 0.2-0.6 mg 0.2-0.6 mg, | | 19 11:19 | | | | | Intravenous, EVERY 5 MIN PRN, | | AM PDT | | | | | Pain, Starting Thu09/03/18 at | | | | | | | 1101, First dose must be lowest | | | | | | | dose, can increase subsequent | | | | | | | doses by 0.2mg within dosing | | | | | | | range. If patient meets opioid | | | | | | | tolerant definition, can start | | | | | | | with 0.4mg dose. [Maximum total | | | | | | | PACU dose 4mg] Use Pasero | | | | | | | Sedation Scale. [Opioid tolerant | | | | | | | = One week or longer, | | | | | | | sunliw-nxi-oiiyg use of at least | | | | | | | the following DAILY dose: 60mg | | | | | | | oral morphine, 60mg oral | | | | | | | hydrocodone, 30mg oral oxycodone, | | | | | | | 8mg oral hydromorphone, fentanyl | | | | | | | patch 25mcg/hr, or equivalent | | | | | | | dose of another opioid], | | | | | | | Recovery/Phase I | | | | | | + +-------+ +--------+---+---+ +-------+ +--------+---+---+ | Given | 09/04/19 | 0.5 mg | | | | | 19 11:11 | | | | | | AM PDT | | | | +-------+ +--------+---+---+ +---+---+ | | | +---+---+ + +-------+ +------+---+---+ | labetalol (TRANDATE) 5 mg/mL | Given | 09/04/19 | 5 mg | | | | injection 5 mg 5 mg, | | 19 12:01 | | | | | Intravenous, EVERY 5 MIN PRN, For | | PM PDT | | | | | SBP > 180, DBP > 100, Starting | | | | | | | 09/03/18 at 1101, Maximum | | | | | | | total dose 100mg. Notify | | | | | | | anesthesia if patient requires | | | | | | | more than 50mg. PARAMETERS KEEP: | | | | | | | SBP< 180, SBP >110 HR<110, HR>55, | | | | | | | Recovery/Phase I | | | | | | + +-------+ +------+---+---+ +-------+ +------+---+---+ | Given | 09/04/19 | 5 mg | | | | | 19 11:55 | | | | | | AM PDT | | | | +-------+ +------+---+---+ | Given | 09/04/19 | 5 mg | | | | | 19 11:44 | | | | | | AM PDT | | | | +-------+ +------+---+---+ +---+---+ | | | +---+---+ + +---------+ +--------+-------+---+ | lactated ringers (LR) infusion | New Bag | 09/04/19 | 1,000 | 100 | | | at 10-100 mL/hr, Intravenous, | | 19 9:50 | mLs | mL/hr | | | CONTINUOUS, Starting Thu09/03/18 | | AM PDT | | | | | at 1000, TKO., Pre-op | | | | | | + +---------+ +--------+-------+---+ + +---+ | | | + +---+ | meperidine (DEMEROL) injection | | | 12.5-25 mg 12.5-25 mg, | | | Intravenous, EVERY 15 MIN PRN, | | | Shivering, To Max 25mg, Starting | | | Thu09/03/18 at 1101, For 2 doses, | | | To Max 25mg, Recovery/Phase I | | + +---+ | | | + +---+ | midazolam (VERSED) 1 mg/mL | | | injection 0.5-1 mg 0.5-1 mg, | | | Intravenous, EVERY 5 MIN PRN, | | | Anxiety, Anxiety or agitation. | | | Please do not give unless pain | | | scores are under 7-of-10., | | | Starting Thu09/03/18 at 1101, | | | Maximum total dose 2 mg., | | | Recovery/Phase I | | + +---+ | | | + +---+ | ondansetron (ZOFRAN) injection | | | 4 mg 4 mg, Intravenous, ONCE | | | PRN, Nausea, Starting Thu09/03/18 | | | at 1101, For 1 dose, | | | Recovery/Phase I | | + +---+ | | | + +---+ documented in this encounter
--- OUTSIDE RECORDS SUMMARY | ~2019-10-03 | XMS | Encounter Summary ---
Demographics + + + | Address | [address] | | | [place] [address] | + + + | Home Phone | | + + + | Preferred Language | Unknown | + + + | Marital Status | Single | + + + | Hindu Affiliation | Unknown | + + + | Race | Unknown | + + + | Ethnic Group | Unknown | + + + Author + + + | Author | [facility] | | | and [place] | + + + | Organization | [facility] | | | and [place] | + + + | Address | Unknown | + + + | Phone | Unavailable | + + + Support + + + + + | Name | Relationship | Address | Phone | + + + + + | Lucie Eric | ECON | [address] | | | | | [place], [place] | | | | | [address] | | + + + + + Care Team Providers + +------+ + | Care Ceo And Founder Name | Role | Phone | + +------+ + | Luis F Alaniz | PCP | | | MD | | | + +------+ + Encounter Details +--------+ + + + + | Date | Type | Department | Care Team | Description | +--------+ + + + + | 09/16/ | Imaging | [facility] | Provider, | | | 2019 | Exam | [facility] | Historical, MD [address] | | | | | IMAG[facility] [address] | | | | | [address] | [place] [address] | | | | | [place] [address] | | | | | | [phone] | | | +--------+ + + + [...] | + +--------+ + + + | CT SINUS WO CONTRAST | Routin | 07/27/2018 | | Results for this | | LIMITED | e | 12:00 AM | | procedure are in the | | | | PDT | | results section. | + +--------+ + + + documented in this encounter Results CT Sinus wo Contrast Limited (07/27/2018 12:00 AM PDT) + + | Specimen | + + | | + + + + + | Narrative | Performed At | + + + | External films for comparison only | [facility] | | | | | No results will be in the chart. | | + + + + +---------+ + + | Performing | Address | City/State/Zipcode | Phone Number | | Organization | | | | + +---------+ + + | [facility] | | | | + +---------+ + + documented in this encounter Visit Diagnoses Not on filedocumented in this encounter"
--- OUTSIDE RECORDS SUMMARY | ~2019-10-03 | XMS | Encounter Summary ---
Demographics + + + | Address | [address] | | | [place] [address] | + + + | Home Phone | | + + + | Preferred Language | Unknown | + + + | Marital Status | Single | + + + | Roman Catholic Affiliation | Unknown | + + + | Race | Unknown | + + + | Ethnic Group | Unknown | + + + Author + + + | Author | [facility] | | | and [place] | + + + | Organization | [facility] | | | and [place] | + + + | Address | Unknown | + + + | Phone | Unavailable | + + + Support + + + + + | Name | Relationship | Address | Phone | + + + + + | Lucie Eric | ECON | [address] | | | | | [place], [place] | | | | | [address] | | + + + + + Care Team Providers + +------+ + | Care Manager Placement Name | Role | Phone | + [...] | | | | | | | NM REPAIR OF | | | | | | | NASAL | | | | | | | SEPTUM NM | | | | | | | [...] +--------+--------+ + + + + Encounter Details +--------+---------+ + + + | Date | Type | Department | Care Team | Description | +--------+---------+ + + + | 09/03/ | [facility] | [facility] | Jose C Woods, | SEPTOPLASTY | | 2018 | | MED CTR OR INTRA OP | [address] | BILATERAL INTRANASAL | | | | [address] | [address] [place], | ETHMOIDECTOMY | | | | [place], [place] | [place] [address] | | | | | [address] | [phone] | | | | | [phone] | | | +--------+---------+ + + + Social History + +-------+ [...] + + + | Blood Pressure | 158/117 | 09/03/2018 9:28 AM | | | | | PDT | | + + + + + | Pulse | 98 | 09/03/2018 9:28 AM | | | | | PDT | | + + + + + | Temperature | 36.4 C (97.5 F) | 09/03/2018 9:28 AM | | | | | PDT | | + + + + + | Respiratory Rate | 18 | 09/03/2018 9:28 AM | | | | | PDT | | + + + + + | Oxygen Saturation | 95% | 09/03/2018 9:28 AM | | | [...] Woods MD - 09/03/2018 11:12 AM PDTPROVID[facility] [address] [address] OPERATIVE REPORT JOSE C WOODS MD Patient: BG LARIOS Admitting: JOSE C Jamia PEGGY MR #: [id number] LOC: PT TYPE: Adm Date: 09/03/2018 : [...] 09/03/2018 11:12:26 Transcribed on 09/03/2018 11:52:59 by janna job# [id number] Confirmation #: [id number] cc: PHAN ALANIZ MD rief Op Note - Jose C Woods MD - 09/03/2018 11:05 AM PDTFormatting of this note mi ght be different from the original. [facility] Name/Age/: Bg Larios 53 y.o. 1965 Med. Record Number: [id number] Date of admission: 09/03/2018 Date of Operation/Procedure: 09/03/2018 Preoperative Diagnosis: * No pre-op diagnosis entered * Postoperative Diagnosis: * Deviated nasal septum [J34.2] Surgeon: Jose C Woods MD Print Finishing Worker: None Anesthesia Provider(s): Anesthesiologist: Izaiah Kunz MD [...] C Woods MD - 09/03/2018 10:05 [facility] AND PHYSICAL UPDATE [...] signed by: Jose C Woods, 09/03/2018 10:05 [facility] SURGICAL INTERIM HISTORY AND PHYSICAL UPDATE [...] signed by: Jose C Woods, 09/03/2018 10:05 [facility] documented in this e ncounter Plan of [...] in benign nasal polyps. | | | TWK:smh:C2NR MICROSCOPIC EXAMINATION: Histologic sections of all | [...] | | technical component was performed by [facility], [address] [place] [address] | | | [place] [address] (Aids Counselor: Savita Haley MD; CLIA# | | | [id number]). Unless otherwise specified, the technical component | | | [place] [address]. The | | | professional interpretation was performed by [facility], | | | [facility], [address] [place] [address]. | | | Diagnostician: Moy Steinberg MD Pathologist Electronically Signed | | | 09/06/2018 | | + + + + +---------+ + + | Performing | Address | City/State/[facility] | Phone Number | | Organization | | | | + +---------+ + + | [place] [facility] | | | | | [facility] | | | | + +---------+ + + documented in this encounter Visit Diagnoses + + | Diagnosis | + + | Deviated nasal septum | + + documented in this encounter [...] | | | + +---+ + +-------+ + +---+ + | bacitracin topical ointment | Given | 09/04/19 | 1 | | Surgical | | PRN, Starting Thu09/03/18 at | | 19 10:46 | Applicat | | Site | | 1046, Intra-op | | AM PDT | ion | | | + +-------+ + +---+ + + +---+ | | | + +---+ [...] One week or | | | longer, itvcbk-nnj-tkgbo use of | | | at least [...] | | | | | | | izsomq-cqh-dupzj use of at least | | | [...] | mL/hr | | | CONTINUOUS, Starting 09/03/18 | | AM PDT | | | | | at 1000, TKO., Pre-op | | | | | | + +---------+ +--------+-------+---+ +---+---+ | | | +---+---+ + +-------+ +-------+---+ + | lidocaine 1%-EPINEPHrine | Given | 09/04/19 | 3 mLs | | Surgical | | 1:100,000 injection PRN, | | 19 10:26 | | | Site | | Starting Thu09/03/18 at 1042, | | AM PDT | | | | | Intra-op | | | | | | + +-------+ +-------+---+ + + +---+ | | | + +---+ | meperidine (DEMEROL) injection | | | 12.5-25 mg 12.5-25 mg, | | | Intravenous, EVERY 15 MIN PRN, | | | Shivering, To Max 25mg, Starting | | | 09/03/18 at 1101, For 2 doses, | | [...]
--- OUTSIDE RECORDS SUMMARY | ~2019-10-03 | XMS | Encounter Summary ---
Demographics + + + | Address | [address] | | | [place] [address] | + + + | Home Phone | | + + + | Preferred Language | Unknown | + + + | Marital Status | Single | + + + | Sabianist Affiliation | Unknown | + + + | Race | Unknown | + + + | Ethnic Group | Unknown | + + + Author + + + | Author | [facility] | | | and [place] | + + + | Organization | [facility] | | | and [place] | + + + | Address | Unknown | + + + | Phone | Unavailable | + + + Support + + + + + | Name | Relationship | Address | Phone | + + + + + | Lucie Eric | ECON | [address] | | | | | [place], [place] | | | | | [address] | | + + + + + Care Team Providers + +------+ + | Care Seismic Engineer Name | Role | Phone | + +------+ + PCP | Unavailable | + +------+ + Encounter Details +--------+ + + + + | Date | Type | Department | Care Team | Description | +--------+ + + + + | 10/16/ | Hospital | [facility] | | | | 2009 | Encounter | MED CTR MP INTRA OP | | | | | | [address] | | | | | | [place] | | | | | | [address] | | | | | | [phone] | | | +--------+ + + + [...]
--- OUTSIDE RECORDS SUMMARY | 2019-10-03 14:18 | XMS ---
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 [place] has no Care Guidelines for this patient. [facility] VISIT COUNT (12 MO.) 1 LISANDRO Valenzuela TOTAL 1 NOTE: Visits indicate total known visits. ED/C VISIT TRACKING (12 MO.) 10/03/2019 14:16 LISANDRO Pena OR TYPE: Emergency COMPLAINT: - URINE PROBLEM INPATIENT VISIT TRACKING (12 MO.) No inpatient visits to display in this time frame [email or web address]
[2019-10-03] MEDS ORDERED: ALPRAZOLAM0.5 MG PO (15:38)
[2019-10-03] MEDS ORDERED: ZOLPIDEM TARTRAT5 MG PO (15:38)
== END 2019-10-03 18:04 | disposition home or self-care (01) ==
LOC: ED 14:15
DX: R10.9 Unspecified abdominal pain (principal); I10 Essential (primary) hypertension; E78.00 Pure hypercholesterolemia, unspecified; Z79.899 Other long term (current) drug therapy; Z88.5 Allergy status to narcotic agent
CPT/HCPCS: 74176; 80053; 81001; 85025; 99284-25

== ENCOUNTER 2020-03-01 05:45 | Day surgery (SDC) | payer OTHER ==
[~2020-03-01] VITALS: Ht 177.8 cm; Wt 100.0 kg
--- NOTE | ~2020-03-01 | OR ---
[facility] [address], [place] [address] Draft DATE OF OPERATION: 03/01/2020 SURGEON: Juli Clements MD PREOPERATIVE DIAGNOSES: Chronic frontal sinusitis, chronic ethmoiditis, chronic sphenoiditis, chronic maxillary sinusitis, deviated nasal septum, chronic eustachian tube dysfunction with retraction pocket, right tympanic membrane. POSTOPERATIVE DIAGNOSES: Chronic frontal sinusitis, chronic ethmoiditis, chronic sphenoiditis, chronic maxillary sinusitis, deviated nasal septum, chronic eustachian tube dysfunction with retraction pocket, right tympanic membrane. PROCEDURES: 1. Bilateral endoscopic frontal ethmoidectomy, 32788-74. 2. Nasal septoplasty, [address]. 3. Bilateral endoscopic sphenoidotomy, 55461-98. 4. Right maxillary antrostomy with removal of tissue, 098[address]. 5. Tympanostomy tube placement in the right ear. INDICATIONS: This 54-year-old gentleman had sinus surgery not too long ago and his problems had become worse, not better and that he has constant infection, constant pain, also pain referable to the ear on the right side, but also forehead periorbital at the base of the occiput and feels better on antibiotics somewhat, but all these symptoms do not go away. Because he did worse after surgery, sought medical attention elsewhere and endoscopic exam and CT scan showed the patient had a picture of pansinusitis, also an infected tooth with an abscess tooth #5. Even after pulling the tooth, the patient's pain and obstruction still persist. CT scan showed unopened sphenoid and frontal sinuses with only partial ethmoid architecture removal and poor drainage still out of the right maxillary sinus with disease and thickening of the mucosa. Because of prior surgery with scarring and continued trouble, the above procedures were felt to be indicated. The patient also had microscopic exam of the right tympanic membrane. Because of the pain, a small retraction pocket in the Shrapnell's membrane was too painful to clean out and remove the debris from it in the office. The fact that he had debris trapped in a pocket could have meant he had an attic cholesteatoma and T-tube was indicated as well as cleaning out. DESCRIPTION OF PROCEDURE: PATIENT NAME: BG LARIOS OPERATIVE REPORT DATE OF : 67 REPORT #: [id number] PHYSICIAN: JULI CLEMENTS MD PCP: DEMI MATHEWS PA-C REPORT IS CONFIDENTIAL AND NOT TO BE RELEASED WITHOUT AUTHORIZATION [facility] [address], [place] [address] Draft The patient was placed in supine position, had an orotracheal intubation, was placed under general anesthesia. The right side could not be endoscoped because of persisting deviation of the septum, hence the need to move the septum over. Left side was done 1st, preop, intraop and postop photographs were obtained. A 1.5 mL of 1% lidocaine with 1:200,000 epinephrine were injected into the remnant of the uncinate process and the middle turbinate. The anterior inferior portion of middle turbinate was trimmed away with a Thru-Cut ethmoid punch, microdebrider and Kerrison forceps. The uncinate process, the remnant was removed with a backbiting forceps. Then, the ethmoid architecture entered with a curette, and a Thru-Cut ethmoid punch, the Kerrison forceps and microdebrider were used to completely remove all the ethmoid architecture going straight back to the sphenoid. The sphenoid sinus was opened with a curette in a transethmoid approach. Once the ceiling to the sphenoid sinus could be visualized, the Kerrison forceps used to remove the rostrum widely. Then changing to a 70-degree scope, the base of skull was dissected coming anteriorly up into the frontal sinus. Frontal sinus was closed off with sinus disease, and scarring and chronic and acute inflammation. The Kerrison frontal sinus punch was used to good effect to remove the beak and all of the architecture whittled down to maybe 1 mm trying to spare mucosa from limits of the dissection. The septum was then repaired by injecting with a couple mL of lidocaine and 3 mL of 0.5% Marcaine 1:200,000 epinephrine. The incision was made at the junction of the floor lifting up the mucoperiosteum, mucoperichondrium bone from cartilage and then elevating the mucoperiosteal on both sides. The Us scissors were used to cut this deviation of the perpendicular plate of the ethmoid and the vomer. Gabriele forceps were used to remove it and only little strip of cartilage was removed, was deviated, contiguous with the bone. The then was used to collapse the space, 4-0 chromic. The right side was then operated on. The uncinate process, a good deal of it was still remaining, this was removed with a backbiting forceps. The anteroinferior portion of the middle turbinate trimmed away the same as the left side. The maxillary ostium was widened. Diseased mucosa removed out of the maxillary sinus and a wide natural sinusotomy was performed. Though the sinus opening was posterior, the sinus was still trying to drain out the natural ostium, which was normal. Physiology was blocked by disease. This was all removed and opened up widely. The posterior ethmoids up against the base of skull had been previously opened, but the sphenoid sinus was not. The sphenoid sinus was opened with a transethmoid sphenoidotomy, the rostrum widely removed and then switching to a 70-degree scope, the anterior ethmoids, which were very diseased and scarred, were opened up, the frontal sinus opened up, the frontal sinusotomy made very wide with the Kerrison frontal sinus punch, then completely removing all of the ethmoid architecture in that lateral wall. The tympanostomy tube was also inserted that was done prior to the sinus surgery, it was done with the microscope on the right side with high-power magnification, all the debris was taken out of the retraction pocket and was found to be shallow, did not go up into the attic and a inserted after making an anteroinferior incision in some tympanosclerotic region. There was no fluid in the middle ear. A few drops were placed PATIENT NAME: BG LARIOS OPERATIVE REPORT DATE OF : 67 REPORT #: [id number] PHYSICIAN: JULI CLEMENTS MD PCP: DEMI MATHEWS PA-C REPORT IS CONFIDENTIAL AND NOT TO BE RELEASED WITHOUT AUTHORIZATION [facility] [address], [place] [address] Draft into the ear to prevent blood from plugging the tube. The patient went to the recovery room in good condition. Estimated blood loss 150-200 ml. No packing required and no nasal pore was used either. MD TOMMIE Canales/MODL /[id number] Copies: ~ PATIENT NAME: BG LARIOS SHANE OPERATIVE REPORT DATE OF : 67 REPORT #: [id number] PHYSICIAN: JULI CLEMENTS MD PCP: DEMI MATHEWS PA-C REPORT IS CONFIDENTIAL AND NOT TO BE RELEASED WITHOUT AUTHORIZATION
[~2020-03-01 05:45] MED LIST changes: +ALPRAZOLAM0.5 MG PO; +ZOLPIDEM TARTRAT5 MG PO
--- NOTE | 2020-03-01 06:16 | NUR ---
SECOND DOSE OF AFRIN ADMINISTERED ORDERED
--- NOTE | 2020-03-01 10:13 | NUR ---
03/01/20 1013 Nemo,Katherine 1001 PT ARRIVED TO PACU WITH ORAL AIRWAY IN PLACE. PT ASLEEP AND ON 6L MASK. VSS. 1007 PT WAKES AND ORAL AIRWAY REMOVED. PT REORIENTED TO PACU, PT DENIES PAIN AND NAUSEA. 1010 MD AT BEDSIDE TALKING TO PT.
--- NOTE | 2020-03-01 10:38 | NUR ---
PT ARRIVES FROM PACU AND BEDSIDE REPORT RECEIVED FROM RN. SNACKS AND ICE WATER PROVIDED. MARNI WELL. VSS. ALERT AND ORIENTED. CALL LIGHT WITHIN REACH COMFORTABLE WITHOUT NEEDS AT THIS TIME
--- NOTE | 2020-03-01 11:27 | NUR ---
PT CALL FOR THIS RN, REPORTS URGE TO VOID. AMBULATES TO BR FOR FIRST SUCCESSFUL POSTOP VOID WITH STANDBY ASSIST FROM THIS RN. STEADY GAIT, DENIES DIZZINESS AND SOB. SMALL AMOUNT OF NASAL DRAINAGE NOTED WHILE PT UPRIGHT. BACK TO BED AT 45 DEGREES. REQUEST FOR PAIN RX, ADMINISTERED ORDERED. VSS. NO FURTHER NEEDS VOICED. CALL LIGHT WITHIN REACH
--- NOTE | 2020-03-01 12:02 | NUR ---
PT CALL FOR THIS RN STATES "I FEEL GREAT" AND REQUESTING D/C. HAS MET CRITERIA ORDERED BY . TC PLACED TO "KELLEN" TO HEAD TO THE HOSPITAL FOR RETIREMENT CONSULTANT OF PT.
--- NOTE | 2020-03-01 12:20 | NUR ---
D/C INSTRUCTIONS PROVIDED AND DISCUSSED ORDERED. PT VOICES UNDERSTANDING AND DENIES QUESTIONS AT THIS TIME. WHEELED OFF OF UNIT BY THIS RN AND TRANSFERS INTO CAR INDEPENDENTLY. PINK, RESP EVEN AND UNLABORED. NO PHYSICAL S/S OF DISTRESS AT THIS TIME
--- NOTE | 2020-03-01 12:29 | NUR ---
PT ALERT, ORIENTED AND ANXIOUS ABOUT SURGERY, BUT REALLY NEEDING SOME RELIEF. ALL QUESTIONS ASKED ANSWERED. PT REQUESTED PRAYER, WILL FOLLOW
== END 2020-03-01 12:15 | disposition home or self-care (01) ==
LOC: DS 05:45
PROVIDERS: ATTEND Otolaryngology
PROC: 099500Z Drainage of Right Middle Ear with Drainage Device, Open Approach (ICD-10-PCS; 2020-03-01)
PROC: 09TV8ZZ Resection of Left Ethmoid Sinus, Via Natural or Artificial Opening Endoscopic (ICD-10-PCS; principal; 2020-03-01 06:45)
PROC: 09TU8ZZ Resection of Right Ethmoid Sinus, Via Natural or Artificial Opening Endoscopic (ICD-10-PCS; 2020-03-01 06:45)
PROC: 09SM4ZZ Reposition Nasal Septum, Percutaneous Endoscopic Approach (ICD-10-PCS; 2020-03-01 06:45)
DX: J01.81 Other acute recurrent sinusitis (principal); J32.8 Other chronic sinusitis; H69.81 Other specified disorders of Eustachian tube, right ear; J34.2 Deviated nasal septum; F32.9 Major depressive disorder, single episode, unspecified; F41.9 Anxiety disorder, unspecified; G47.33 Obstructive sleep apnea (adult) (pediatric); G89.29 Other chronic pain; E66.01 Morbid (severe) obesity due to excess calories; Z87.01 Personal history of pneumonia (recurrent); Z79.899 Other long term (current) drug therapy; Z88.1 Allergy status to other antibiotic agents; Z88.6 Allergy status to analgesic agent; Z68.38 Body mass index [BMI] 38.0-38.9, adult; Z01.812 Encounter for preprocedural laboratory examination; Z20.828 Contact with and (suspected) exposure to other viral communicable diseases
CPT/HCPCS: 00160; J0330; J1100; J1885; J2250; J2405; J2704; J2765; J3010; J7121

== ENCOUNTER 2021-12-20 15:48 | Emergency (ER) | payer OTHER ==
[~2021-12-20] VITALS: Ht 177.8 cm; Wt 113.5 kg
--- OUTSIDE RECORDS SUMMARY | 2021-12-20 15:50 | XMS ---
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 EJuanis VISIT COUNT (12 MO.) [address] [facility] TOTAL 2 NOTE: Visits indicate total known visits. ED/UCC VISIT TRACKING (12 MO.) 12/20/2021 15:48 [facility] [place] TYPE: Emergency COMPLAINT: - COLD SYMPTOMS 04/30/2021 11:38 [facility] [place] TYPE: Emergency DIAGNOSES: - Rash and other nonspecific skin eruption - ALLERGIC REACTION INPATIENT VISIT TRACKING (12 MO.) No inpatient visits to display in this time frame [id number]
[2021-12-20] MEDS ORDERED: LISINOPRIL-HCT1 EAC2 PO (16:05)
[2021-12-20] MEDS ORDERED: NASAL DECONGEST30 MG PO (16:43)
[2021-12-20] MEDS ORDERED: HYDROCODON-ACE1 EA11 PO (16:43)
[2021-12-20] MEDS ORDERED: AMOX TR-K CLV1 EAC1 PO (16:43)
== END 2021-12-20 16:54 | disposition home or self-care (01) ==
LOC: ED 15:48
DX: J32.9 Chronic sinusitis, unspecified (principal); H66.91 Otitis media, unspecified, right ear; I10 Essential (primary) hypertension; E78.00 Pure hypercholesterolemia, unspecified; Z88.1 Allergy status to other antibiotic agents; Z88.5 Allergy status to narcotic agent; Z79.899 Other long term (current) drug therapy
CPT/HCPCS: 99283

== ENCOUNTER 2022-01-11 10:13 | Emergency (ER) | payer OTHER ==
[~2022-01-11] VITALS: Ht 177.8 cm; Wt 114.6 kg
[~2022-01-11 10:13] MED LIST changes: +AMOX TR-K CLV1 EAC1 PO; +HYDROCODON-ACE1 EA11 PO; +LISINOPRIL-HCT1 EAC2 PO; +NASAL DECONGEST30 MG PO
--- OUTSIDE RECORDS SUMMARY | 2022-01-11 10:17 | XMS ---
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 Edilson VISIT COUNT (12 MO.) [address] [place] [address] TOTAL 4 NOTE: Visits indicate total known visits. ED/UCC VISIT TRACKING (12 MO.) 01/11/2022 10:13 [facility] [place] TYPE: Emergency COMPLAINT: - COLD SYMPTOMS 01/10/2022 11:36 [facility] [place] TYPE: Emergency COMPLAINT: - SINUS PAIN 12/20/2021 15:48 [facility] [place] TYPE: Emergency COMPLAINT: - COLD SYMPTOMS DIAGNOSES: - Chronic sinusitis, unspecified - Allergy status to narcotic agent - Other instructional design consultant (current) drug therapy - Allergy status to other antibiotic agents - Essential (primary) hypertension - Otitis media, unspecified, right ear - Pure hypercholesterolemia, unspecified 04/30/2021 11:38 [facility] [place] TYPE: Emergency DIAGNOSES: - ALLERGIC REACTION - Rash and other nonspecific skin eruption INPATIENT VISIT TRACKING (12 MO.) No inpatient visits to display in this time frame [email or web address]
[2022-01-11] MEDS ORDERED: CEFDINIR300 MG PO (10:25)
[2022-01-11] MEDS ORDERED: PREDNISONE20 MG PO (10:49)
[2022-01-11] MEDS ORDERED: HYDROCODON-ACE1 EA11 PO (10:49)
[2022-01-11] MEDS ORDERED: AUGMENTIN XR 11 EACH PO (10:49)
== END 2022-01-11 11:20 | disposition home or self-care (01) ==
LOC: ED 10:13
DX: J01.90 Acute sinusitis, unspecified (principal); I10 Essential (primary) hypertension; Z88.8 Allergy status to other drugs, medicaments and biological substances; Z79.899 Other long term (current) drug therapy; Z88.5 Allergy status to narcotic agent
CPT/HCPCS: 99283; J7512

== ENCOUNTER 2022-03-07 09:19 | Emergency (ER) | payer OTHER ==
[~2022-03-07] VITALS: Ht 177.8 cm; Wt 115.0 kg
[~2022-03-07 09:19] MED LIST changes: +AUGMENTIN XR 11 EACH PO; +CEFDINIR300 MG PO; +PREDNISONE20 MG PO
--- OUTSIDE RECORDS SUMMARY | 2022-03-07 09:21 | XMS ---
PreManage Notification: BG LARIOS Security Talent Development Consultant Events 1 event(s) in the past 18 months Most recent security events: Elopement at [facility] 01/10/2022 11:36 - Patient eloped before treatment completed. - Patient with suicidal and/or homicidal ideations eloped. - Patient eloped with IV in place. Details: Patient LWBS. CRITERIA MET - [facility] CARE PROVIDERS DEMI MATHEWS Physician Singe Machine Operator 10/04/2019-Current PHONE: [phone] Corby has no Care Guidelines for this patient. E.Richard VISIT COUNT (12 MO.) [address] [employer] TOTAL 5 NOTE: Visits indicate total known visits. ED/UCC VISIT TRACKING (12 MO.) 03/07/2022 09:19 [facility] [place] TYPE: Emergency COMPLAINT: - BLADDER PAIN 01/11/2022 10:13 [facility] [place] TYPE: Emergency COMPLAINT: - COLD SYMPTOMS DIAGNOSES: - Allergy status to narcotic agent - Allergy status to other drugs, medicaments and biological substances - Acute sinusitis, unspecified - Nasal congestion - Essential (primary) hypertension - Other continuous churn buttermaker (current) drug therapy 01/10/2022 11:36 [facility] [place] TYPE: Emergency COMPLAINT: - SINUS PAIN 12/20/2021 15:48 [facility] [place] TYPE: Emergency COMPLAINT: - COLD SYMPTOMS DIAGNOSES: - Essential (primary) hypertension - Otitis media, unspecified, right ear - Pure hypercholesterolemia, unspecified - Chronic sinusitis, unspecified - Allergy status to narcotic agent - Other long-term (current) drug therapy - Allergy status to other antibiotic agents 04/30/2021 11:38 [facility] [place] TYPE: Emergency DIAGNOSES: - Rash and other nonspecific skin eruption - ALLERGIC REACTION INPATIENT VISIT TRACKING (12 MO.) No inpatient visits to display in this time frame [email or web address]
[2022-03-07] MEDS ORDERED: HYDROCODON-ACE1 EA11 PO (10:54)
[2022-03-07] MEDS ORDERED: FLOMAX0.4 MG PO (10:54)
== END 2022-03-07 11:13 | disposition home or self-care (01) ==
LOC: ED 09:19
PROC: 4A0D7LZ Measurement of Urinary Volume, Via Natural or Artificial Opening (ICD-10-PCS; principal; 2022-03-07)
PROC: 0T9B70Z Drainage of Bladder with Drainage Device, Via Natural or Artificial Opening (ICD-10-PCS; 2022-03-07)
DX: R33.9 Retention of urine, unspecified (principal); I10 Essential (primary) hypertension; E78.00 Pure hypercholesterolemia, unspecified; Z88.8 Allergy status to other drugs, medicaments and biological substances; Z79.899 Other long term (current) drug therapy
CPT/HCPCS: 36415; 51702; 51798; 76770; 80048; 81003; 84153; 85025; 99284-25; A9270

== ENCOUNTER 2022-03-12 13:43 | Emergency (ER) | payer OTHER ==
[~2022-03-12] VITALS: Ht 177.8 cm; Wt 114.8 kg
[~2022-03-12 13:43] MED LIST changes: +FLOMAX0.4 MG PO
--- OUTSIDE RECORDS SUMMARY | 2022-03-12 13:46 | XMS ---
PreManage Notification: BG LARIOS Security Respiratory Director Events 1 event(s) in the past 18 months Most recent security events: Elopement at [facility] 01/10/2022 11:36 - Patient eloped before treatment completed. - Patient with suicidal and/or homicidal ideations eloped. - Patient eloped with IV in place. Details: Patient LWBS. CRITERIA MET - [facility] - 2 Visits in 30 Days - [facility] CARE PROVIDERS DEMI MATHEWS Physician 10/04/2019-Current PHONE: [phone] Corby has no Care Guidelines for this patient. Edilson VISIT COUNT (12 MO.) 1 [facility] [address] TOTAL 6 NOTE: Visits indicate total known visits. ED/UCC VISIT TRACKING (12 MO.) 03/12/2022 13:44 [facility] [place] TYPE: Emergency COMPLAINT: - CATHETER REMOVAL 03/07/2022 09:19 [facility] [place] TYPE: Emergency COMPLAINT: - BLADDER PAIN DIAGNOSES: - Allergy status to other drugs, medicaments and biological substances - Essential (primary) hypertension - Other intermediate (current) drug therapy - Lower abdominal pain, unspecified - Pure hypercholesterolemia, unspecified - Retention of urine, unspecified 01/11/2022 10:13 [facility] [place] TYPE: Emergency COMPLAINT: - COLD SYMPTOMS DIAGNOSES: - Allergy status to narcotic agent - Allergy status to other drugs, medicaments and biological substances - Acute sinusitis, unspecified - Nasal congestion - Essential (primary) hypertension - Other intermediate (current) drug therapy 01/10/2022 11:36 [facility] [place] TYPE: Emergency COMPLAINT: - SINUS PAIN 12/20/2021 15:48 [facility] [place] TYPE: Emergency COMPLAINT: - COLD SYMPTOMS DIAGNOSES: - Essential (primary) hypertension - Otitis media, unspecified, right ear - Pure hypercholesterolemia, unspecified - Chronic sinusitis, unspecified - Allergy status to narcotic agent - Other intermediate (current) drug therapy - Allergy status to other antibiotic agents 04/30/2021 11:38 [facility] [place] TYPE: Emergency DIAGNOSES: - Rash and other nonspecific skin eruption - ALLERGIC REACTION INPATIENT VISIT TRACKING (12 MO.) No inpatient visits to display in this time frame [id number]
== END 2022-03-12 17:37 | disposition home or self-care (01) ==
LOC: ED 13:43
DX: Z46.6 Encounter for fitting and adjustment of urinary device (principal); I10 Essential (primary) hypertension; E78.00 Pure hypercholesterolemia, unspecified; G47.00 Insomnia, unspecified; Z88.1 Allergy status to other antibiotic agents; Z88.6 Allergy status to analgesic agent; Z79.899 Other long term (current) drug therapy
CPT/HCPCS: 99283

== ENCOUNTER 2023-03-13 11:31 | Emergency (ER) | payer OTHER ==
[~2023-03-13] VITALS: Ht 177.8 cm; Wt 112.4 kg
[~2023-03-13 11:31] MED LIST changes: +SILDENAFIL CIT100 MG PO
--- OUTSIDE RECORDS SUMMARY | 2023-03-13 11:34 | XMS ---
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 - Patient eloped before treatment completed. - Patient with suicidal and/or homicidal ideations eloped. Details: Patient LWBS. CRITERIA MET - PDM CARE PROVIDERS -[place]- Dentist: Lunch Wagon Operator [facility] PHONE: [phone] Corby has no Care Guidelines for this patient. E.DAlfredo VISIT COUNT (12 MO.) 1 [facility] TOTAL 1 NOTE: Visits indicate total known visits. ED/UCC VISIT TRACKING (12 MO.) 03/13/2023 11:31 [facility] [place] TYPE: Emergency COMPLAINT: - ABD PAIN, TESTICLE PAIN, NAUSEA INPATIENT VISIT TRACKING (12 MO.) No inpatient visits to display in this time frame [email or web address]
[2023-03-13] MEDS ORDERED: HYDROCODON-ACE1 EA11 PO (12:08)
[2023-03-13 12:19] VITALS: BP 170/111
== END 2023-03-13 12:20 | disposition home or self-care (01) ==
LOC: ED 11:31
DX: S39.011A Strain of muscle, fascia and tendon of abdomen, initial encounter (principal); I10 Essential (primary) hypertension; E78.00 Pure hypercholesterolemia, unspecified; G47.00 Insomnia, unspecified; X50.1XXA Overexertion from prolonged static or awkward postures, initial encounter; Z98.890 Other specified postprocedural states; Z88.6 Allergy status to analgesic agent; Z88.1 Allergy status to other antibiotic agents; Z79.899 Other long term (current) drug therapy
CPT/HCPCS: 99283